=== PATIENT | female | born 1990 | race Caucasian/White ===

== ENCOUNTER 2017-07-29 01:24 | Emergency (ER) | payer OTHER ==
[~2017-07-29] VITALS: Ht 167.6 cm; Wt 99.8 kg
[~2017-07-29 01:24] MED LIST: IBUPROFEN 600600 M1 PO; IBUPROFEN 800800 MG PO; LORTAB 5 MG/5001 TA1 PO; NOHOMEMEDICATIONS; ZOFRAN 4 MG ORAL4 MG
[2017-07-29] MEDS ORDERED: COMPAZINE10 MG PO (03:27)
[2017-07-29 03:39] VITALS: BP 122/73
== END 2017-07-29 03:39 | disposition home or self-care (01) ==
LOC: ER 01:24
DX: R51 Headache (principal)